=== PATIENT | male | born 1980 | race Caucasian/White ===

== ENCOUNTER 2017-07-21 23:48 | Observation (INO) | payer SELFPAY ==
[~2017-07-21] VITALS: Ht 182.9 cm; Wt 90.5 kg
[2017-07-21 23:59] VITALS: BP 141/82
[2017-07-22] VITALS (12 sets, daily range): BP systolic 95–141; BP diastolic 62–88
--- NOTE | 2017-07-22 00:10 | Emergency Room Report ---
History of Present Illness Time Seen by MD Miller Presenting Problem in Triage Pt arrived:Wheelchair Presenting Problem:LEFT KNEE RED,HOT AND SWOLLEN, DRAINING GREENISH DRAINAGE WITH FOUL ODOR PRESENT Onset of symptoms date/time:07/18/17/ or onset unknown for:MEDICAL HX UNKNOWN Treatment Prior to Arrival: DIAMOND CLEAVER Provided by: Sepsis Risk Assessment: Temp: 98.7 B/P: 141/82 MAP: 101 Pulse: 91 Resp: 12 Recent fever? N Clinical Suspician of Infection? N Mental Status: 1 - Regular (Normal Baseline) Sepsis Risk:Low Sepsis Risk Have you (or family members/close friends) recently traveled outside the [place]? N If Yes, where/when: Have you had exposure to infectious disease within the past month? N TB? Other? Specify: Source patient, RN notes reviewed, family, old records Exam Limitations no limitations Comment pt with progressive reddness and pain with drainage lt knee - n hx of diabetes and no hx of mrsa Cardiac Chest Pain Chest pain indicative of cardiac No Timing/Duration this evening Severity moderate ALLERGIES Coded Allergies: diphenhydramine (From BENADRYL) (Intermediate, 07/22/17) Home Medications Reported Medications No Known Home Medications History Medical History General CAD? No Angina: No [place]: No Hypertension? No Hyperlipidemia? No CHF? No DVT? No PE? No COPD? No Asthma? No Anemia? No GERD? No Gastric ulcers? No GI Bleed? No Hernia? No Thyroid Problems? No Hypothyroidism? No CVA? No Seizures? No Diabetes? No Renal Insuffiency? No End Stage Renal Disease? No UTI? No Stones? No BPH? No GB Disease: No Nephritic Syndrome? No Asplenia? No Hepatitis? No Sickle Cell Disease? No Arthritis? No Migraines? No Cataracts? No Glaucoma? No MRSA? No HIV? No TB? No Anxiety? No Depression? No Cancer? Yes Site: skin More? 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 Respiratory denies cough, denies shortness of breath, denies wheezing Cardiovascular denies chest pain, denies palpitations, denies syncope Gastrointestinal denies abdominal pain, denies nausea, denies vomiting Genitourinary denies: dysuria, frequency, hesitancy, hematuria. Musculoskeletal see HPI, denies back pain, joint pain, denies joint swelling, denies neck pain Skin see HPI, denies rash, other Psychiatric/Neurological denies headache, denies seizure Physical Exam Vital Signs Vital Signs Date Time Temp Pulse Resp B/P Pulse O2 O2 Flow FiO2 Ox Delivery Rate 07/22 0037 18 07/21 2359 98.7 91 12 141/82 99 - WBC >12,000 or <4,000 or 10% bands? 2 or more SIRS Criteria Met? B/P:141/82 MAP:101 Creatinine >2.0? UA output<0.5ml/kg/hr for 2 hrs? Platelet count >100,000? Lactate >2.0mmol/1? INR >1.2 or PTT > than 60 sec? Evidence of Organ Dysfunction? Provider documented clinical suspician of infection? N Sepsis Criteria Count: 1 Sepsis Risk: Low Sepsis Risk General Appearance no apparent distress Eye Exam - bilateral eye PERRL, bilateral eye EOMI Ear, Nose, Throat normal ENT inspection Neck supple Respiratory Status No: respiratory distress. Cardiovascular regular rate/rhythm Peripheral Pulses Pulses normal Yes Gastrointestinal soft Extremities swelling, reddness and drainage lt pretibial area with no def abscess and jt moves ok Strength 4 Upper Ext (L), 4 Upper Ext (R), 4 Lower Ext (L), 4 Lower Ext (R) Neurologic alert Reflexes Reflexes normal No Mental status normal mood/affect Skin cellulitis lt lower leg as noted above Medical Decision Making LABS/Meds/Orders Pt receiving controlled substance in ED? No Results/Orders Laboratory Tests 07/22/1714: Lactic Acid 1.2 07/22/1714: Hemoglobin A1c Pending 07/22/1714: Sodium 134 L, Potassium 3.9, Chloride 98, Carbon Dioxide 30, BUN 9, Creatinine 0.8, Estimated Creat Clear 161, Estimated GFR (MDRD) 108, Glucose 116 H, Calcium 8.7, Total Bilirubin 0.5, AST 13 L, ALT 16, Alkaline Phosphatase 71, Total Protein 8.4 H, Albumin 3.3 L, Globulin 5.1 H, Albumin/Globulin Ratio 0.6 L, WBC 11.9 H, RBC 4.75, Hgb 13.6 L, Hct 41.8 L, MCV 88.1, RDW 13.1, Plt Count 294, MPV 7.6, Gran % 74.7, Gran # 8.9 H, Lymphocytes % 13.6, Monocytes % 5.8, Eosinophils % 5.5, Basophils % 0.4, Lymphocytes # 1.6, Monocytes # 0.7, Eosinophils # 0.7 H, Basophils # 0.1, PUBS MCHC 32.4, MCH 28.6 Current Medication Orders Sig/Beena Start time Last Medication Dose Route Stop Time Status Admin Miscellaneous 1 EACH CONSULT PHARMACY 07/22 45 AC Information * 07/22 1234 Vancomycin HCl 1,000 MG ONCE ONE 07/22 45 CKDr 07/22 Sodium Chloride 250 ML IV 07/22 244 0038 Sodium Chloride 250 ML .STK-MED ONE 07/22 34 DC IV Vancomycin HCl 0 .STK-MED ONE 07/22 34 DC .ROUTE Ketorolac 0 .STK-MED ONE 07/223 DC Tromethamine .ROUTE Ketorolac 30 MG ONCE ONE 07/22 0015 DC 07/22 Tromethamine IV 07/22 0016 0037 Sodium Chloride 10 ML PRN PRN 07/22 15 AC IV 07/23 0007 Orders Procedure Date/time Status GLYCOHEMOGLOBIN (A1C) 07/22 44 Active KNEE-3 VIEWS-LT 07/22 001 Active IV SALINE LOCK 07/22 001 Active CULTURE, WOUND 07/22 10 Active CULTURE, BLOOD 07/22 001 Active LACTIC ACID 07/22 001 Complete SED RATE 07/22 001 Active CBC WITH AUTO DIFF 07/22 10 Complete CHEM 12 PROFILE 07/22 001 Complete XRAY/CT/US XRAY/CT/US XRAY knee XR interpretation by reviewed by me Xray Results no fracture seen Departure Departure Time of Disposition 004 Disposition Still a Patient Clinical Impression Primary Impression: Cellulitis of knee, left Condition STABLE Referrals Erick Briscoe MD discussed with dr briscoe Prescriptions Current Visit Scripts No Known Home Medications ED Critical Care Critical Care No at 0104
[2017-07-22 00:33] LABS: HEMOGLOBIN 13.6 g/dL (14.1-18.0); LYMPH # 1.6 K/mm3 (0.7-4.5); LYMPH % 13.6 % (10-50)
--- NOTE | 2017-07-22 07:12 | RADIOLOGY REPORT PS360 ---
KNEE-3 VIEWS-LT HISTORY: Pain and swelling, redness and edema AREA RED AND SWOLLEN ORDERING PHYSICIAN: Erick Montes MD PATIENT AGE: 37 years COMPARISON: None FINDINGS: No fracture or dislocation. No lytic or blastic change. Normal mineralization. No significant arthritic changes evident. No other significant findings IMPRESSION: Negative Knee
--- NOTE | 2017-07-22 13:25 | PHARMACY CLINIC NOTE ---
Patient Demographics Patient Demographics Admission date: 07/22/17 Date: 07/22/17 Time: 1325 Allergies Coded Allergies: diphenhydramine (From BENADRYL) (Intermediate, 07/22/17) HEIGHT- FT: 6 IN: 0.00 K.464 VTE General Information Labs: Laboratory Tests 07/22 0015 Hematology Hgb (14.1 - 18.0 g/dL) 13.6 L Hct (42.0 - 52.0 %) 41.8 L Plt Count (142 - 424 K/mm3) 294 Disclaimer The following section includes nursing documentation that has been pulled in for pharmacy review. Patient's VTE score: 0 Patient's VTE Risk: VERY LOW RISK Clinical trial participant? No VTE prophylaxis NQF 0371 VTE prophylaxis ordered? Yes Type of prophylaxis/treatment: SYLVIA at 1324
--- NOTE | 2017-07-22 13:30 | CONSULT NOTE ---
Pharmacokinetic Consult Date of consult: 07/22/17 Time of consult: 1328 Referring provider: DR. ALLEN Reason for consult: VANCOMYCIN DOSING Allergies: Coded Allergies: diphenhydramine (From BENADRYL) (Intermediate, 07/22/17) Home Medications: Reported Medications No Known Home Medications Height (feet): 6 Height (inches): 0.00 Medical History: CAD? No Angina: No [place]: No Hypertension? No Hyperlipidemia? No CHF? No DVT? No PE? No COPD? No Asthma? No Anemia? No GERD? No Gastric ulcers? No GI Bleed? No Hernia? No Thyroid Problems? No Hypothyroidism? No CVA? No Seizures? No Diabetes? No Renal Insuffiency? No UTI? No Stones? No BPH? No GB Disease: No Nephritic Syndrome? No Asplenia? No Hepatitis? No Sickle Cell Disease? No Arthritis? No Migraines? No Cataracts? No Glaucoma? No MRSA? No HIV? No TB? No Anxiety? No Depression? No Cancer? Yes Site: skin More? No Labs: Laboratory Tests 07/22/1714: Lactic Acid 1.2 07/22/1714: Hemoglobin A1c 5.4, ESR 68 H 07/22/17 001: Sodium 134 L, Potassium 3.9, Chloride 98, Carbon Dioxide 30, BUN 9, Creatinine 0.8, Estimated Creat Clear 161, Estimated GFR (MDRD) 108, Glucose 116 H, Calcium 8.7, Total Bilirubin 0.5, AST 13 L, ALT 16, Alkaline Phosphatase 71, Total Protein 8.4 H, Albumin 3.3 L, Globulin 5.1 H, Albumin/Globulin Ratio 0.6 L, WBC 11.9 H, RBC 4.75, Hgb 13.6 L, Hct 41.8 L, MCV 88.1, RDW 13.1, Plt Count 294, MPV 7.6, Gran % 74.7, Gran # 8.9 H, Lymphocytes % 13.6, Monocytes % 5.8, Eosinophils % 5.5, Basophils % 0.4, Lymphocytes # 1.6, Monocytes # 0.7, Eosinophils # 0.7 H, Basophils # 0.1, PUBS MCHC 32.4, MCH 28.6 Microbiology 07/22 15 BLOOD: Anaerobic Blood Culture - RECD 07/22 15 BLOOD: Aerobic Blood Culture - RECD 07/22 15 BLOOD: Anaerobic Blood Culture - RECD 07/22 15 BLOOD: Aerobic Blood Culture - RECD 07/22 10 WOUND: Wound Culture - RECD Problem List: 1. Cellulitis of knee, left Plan: RECOMMEND STARTING WITH VANCOMYCIN 1750 MG Q8H AT THIS TIME. PHARMACY WILL FOLLOW DAILY AND ADJUST APPROPRIATE. SUKHI MARQUEZ, PHARMD at [phone]
--- NOTE | 2017-07-22 13:40 | HISTORY AND PHYSICAL REPORT ---
See Addendum Demographics: Admit date: 07/21/17 Chief complaint: LEFT knee swelling and drainage PRIMARY DIAGNOSIS: CELLULITIS LT KNEE Allergies: Coded Allergies: diphenhydramine (From BENADRYL) (Intermediate, 07/22/17) History of present illness: History of present illness: 37-year-old white male who presented to the emergency department yesterday evening with LEFT knee swelling and drainage. ER note reviewed. ER physician called me and felt that given his high white count and failure of improvement he needed IV antibiotics and possible orthopedic consultation. I have now visited the second floor twice today and both times patient has been unavailable for examination because of his wish to go away from the floor out to the [facility] and smoke. The nurses report that he has active drainage from an area just below the knee. I have reviewed chart, vital signs, photos and x-rays. Past medical history: Family HX Diabetes Yes CAD Yes Hypertension Yes Hyperlipidemia No Cancer Yes TB No Immunization HX DT/Tetanus 1-4 Years Ago Flu Refused Pneumonia Never Had TB Test in last year Yes Result Negative General CAD? No Angina: No [place]: No Hypertension? No Hyperlipidemia? No CHF? No DVT? No PE? No COPD? No Asthma? No Anemia? No GERD? No Gastric ulcers? No GI Bleed? No Hernia? No Thyroid Problems? No Hypothyroidism? No CVA? No Seizures? No Diabetes? No Renal Insuffiency? No UTI? No Stones? No BPH? No GB Disease: No Nephritic Syndrome? No Asplenia? No Hepatitis? No Sickle Cell Disease? No Arthritis? No Migraines? No Cataracts? No Glaucoma? No MRSA? No HIV? No TB? No Anxiety? No Depression? No Cancer? Yes Site: skin More? 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 No Patien't marital status is single Patient's support system is fair Comment: Patient is apparently accompanied by his girlfriend Review of systems: Constitutional see HPI. Respiratory see HPI. Cardiovascular see HPI Gastrointestinal/Abdominal see HPI Genitourinary see HPI. Musculoskeletal see HPI. Neurological Yes: see HPI, no symptoms reported. Comment: Review of systems unreliable/unobtainable because of patient's absence from the floor Exam: Lab data for last 24 hours: Laboratory Tests 07/22/1714: Lactic Acid 1.2 07/22/1714: Hemoglobin A1c 5.4, ESR 68 H 07/22/1714: Sodium 134 L, Potassium 3.9, Chloride 98, Carbon Dioxide 30, BUN 9, Creatinine 0.8, Estimated Creat Clear 161, Estimated GFR (MDRD) 108, Glucose 116 H, Calcium 8.7, Total Bilirubin 0.5, AST 13 L, ALT 16, Alkaline Phosphatase 71, Total Protein 8.4 H, Albumin 3.3 L, Globulin 5.1 H, Albumin/Globulin Ratio 0.6 L, WBC 11.9 H, RBC 4.75, Hgb 13.6 L, Hct 41.8 L, MCV 88.1, RDW 13.1, Plt Count 294, MPV 7.6, Gran % 74.7, Gran # 8.9 H, Lymphocytes % 13.6, Monocytes % 5.8, Eosinophils % 5.5, Basophils % 0.4, Lymphocytes # 1.6, Monocytes # 0.7, Eosinophils # 0.7 H, Basophils # 0.1, PUBS MCHC 32.4, MCH 28.6 Microbiology 07/22 15 BLOOD: Anaerobic Blood Culture - RECD 07/22 15 BLOOD: Aerobic Blood Culture - RECD 07/22 15 BLOOD: Anaerobic Blood Culture - RECD 07/22 15 BLOOD: Aerobic Blood Culture - RECD 07/22 10 WOUND: Wound Culture - RECD Additional information: I am unable to examine patient in the allotted time. Per medical staff bylaws because of patient's persistent absence from his hospital room. Plan: Problem List 1. Cellulitis of knee, left Plan: Hopefully I will be able to see the patient at some point in the next 24 hours. I do think orthopedic consultation is indicated given the proximity of cellulitis to the knee joint. We will continue antibiotics as ordered through the emergency department. at 1340
--- NOTE | 2017-07-22 16:36 | CONSULT NOTE ---
Consultation findings: Referring physician: Dr. Montes Date of examination: 07/22/17 Time of examination: 1530 Exam findings: History of present illness: Patient is a 37-year-old white male who was admitted to the hospital from the emergency department yesterday evening with LEFT knee cellulitis, swelling and drainage. Patient says he developed a small pustule over the infrapatellar area of his left knee 4 days ago. He states he tried to drain this with a pin after which it became enlarged with erythema and tenderness over the infrapatellar area extending onto the front of the leg. It started draining purulent material yesterday. He also reports having had fever couple of times at home. When he presented to the ER he had slightly elevated white cell count. He was started on IV vancomycin and admitted for observation. He reports no fever since admission. He reports pain over the infrapatellar area extending onto the front of the leg. No pain in the knee joint itself. He is able to mobilize fully weightbearing without support. He says he had similar but minor problems over both knee joints in the past. 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 He is a chronic smoker and smokes a pack of cigarettes a day. He is past medical history, medication, ROS and physical examination are well documented by Dr. Montes. It is reviewed but not duplicated here. His examination is confined to the LEFT knee. I reviewed the labs, medication, ER and medical admission notes, x-rays and discussed with nursing staff. Physical examination: On examination of his left knee, he has erythema over the infrapatellar area extending onto the upper anterior leg. There is an area of 3 cm x 3 cm macerated skin in front of the tibial tubercle with drainage of small amount of purulent material. He is tender over this area. The examination of the knee joint itself is unremarkable. There is no joint line tenderness and he has knee range of motion from 0-100 of flexion. There is no knee joint effusion. He is able to actively straight leg raise. There is no regional lymphadenopathy. His thigh and calf are soft and nontender. Distal neurovascular status is intact. Imaging: X-ray of his left knee performed yesterday reviewed along with radiologist report- FINDINGS: No fracture or dislocation. No lytic or blastic change. Normal mineralization. No significant arthritic changes evident. No other significant findings. IMPRESSION: Negative Knee 07/22/17 0712 BONAL / PS AT 0707 T: AT 0708. Impression: Cellulitis, left knee Recommendations: I reviewed the clinical and x-ray findings with the patient. I have discussed the diagnosis, natural history and management options in detail including both nonsurgical and surgical. He has a very superficial infected lesion over the infrapatellar area with macerated overlying skin. There is a large area of surrounding cellulitis. The knee joint itself is not involved in the infective process. Given these findings, I would expect this to improve with conservative management with IV antibiotics, as needed pain medication, NSAIDs, elevation and cessation of smoking. Following a discussion with the patient and after obtaining a verbal consent, I have performed a bedside debridement excising the macerated skin over the infrapatellar area. This exposed a small area of superficial unhealthy granulation tissue without any deeper extension. Sterile nonadherent dressings are applied over this area. Thank you for the opportunity to participate in the care of this patient.
--- OUTSIDE RECORDS SUMMARY | 2017-07-23 02:24 | External Medical Summary Rpt | CCD ---
Demographics Preferred Language Urdu Marital Status Unknown Buddhist Affiliation Unknown Race Unknown Ethnic Group Unknown Author Author , GRACE Organization GRACE Address Unknown Phone [email or web address] Immunization Name Date Rout CVX Reac Dose Comm Prov Is Faci e tion ent ider Refu lity Give sed n Td 08-0 9 999 Hist H196 No H196 (estella 5-19 oric lt), 96 al Info adso rmat rbed ion - Sour ce Unsp ecif ied
--- OUTSIDE RECORDS SUMMARY | 2017-07-23 02:24 | External Medical Summary Rpt | CCD ---
Author Author , GRACE EDWARDS Address Unknown Phone Care Team Providers Care Fireman Name Role Phone [facility], Unavailable Unavailable [facility], Unavailable Unavailable [facility] MARIANNE GARCIA, MARIANNE GARCIA Unavailable Unavailable [facility], Unavailable Unavailable [facility] Purpose Continuity of Care Document - 09-17-2014 through 2016 Problems Code Diagnosis DOS Provider Status Z681 BODY MASS 05-09-2016 DEPT FOR INDEX 19.9 [facility] OR LESS ADULT 5259 UNSPECIFIED 09-17-2014 [facility] RTING STRUCTURES 75237 TOOTH 09-17-2014 [facility] TRAUMA W/O MENTION COMP Encounters Encounter Start End Date Code Location Performer Type Date EMERGENCY [address] [facility]SE 4 4 [facility] T VISIT MODERATE SEVERITY
--- OUTSIDE RECORDS SUMMARY | 2017-07-23 02:24 | External Medical Summary Rpt | CCD ---
Author Author , GRACE EDWARDS Address Unknown Phone Care Team Providers Care Grocery Packer Name Role Phone [facility], [...] DISORDER [facility] RTING STRUCTURES 53686 TOOTH 09-17-2014 [facility] TRAUMA W/O MENTION COMP Encounters Encounter Start End Date Code Location Performer Type Date EMERGENCY [address] [facility] JO[facility] 4 4 [facility] T VISIT MODERATE SEVERITY
--- OUTSIDE RECORDS SUMMARY | 2017-07-23 02:24 | External Medical Summary Rpt | CCD ---
Author Author , GRACE EDWARDS Address Unknown Phone [email or web address] Care Team Providers Care Retail Center Receptionist Name Role Phone [facility], [...] DISORDER [facility] RTING STRUCTURES 56279 TOOTH 09-17-2014 [facility] TRAUMA W/O MENTION COMP Encounters Encounter Start End Date Code Location Performer Type Date EMERGENCY [address] [facility] JOSE 4 4 [facility] T VISIT MODERATE SEVERITY
--- OUTSIDE RECORDS SUMMARY | 2017-07-23 02:24 | External Medical Summary Rpt ---
Author Author GRACE Dai, GRACE Production Organization [employer] Address Unknown Phone Unavailable
--- OUTSIDE RECORDS SUMMARY | 2017-07-23 02:24 | External Medical Summary Rpt | CCD ---
Demographics Preferred Language Korean Marital Status Unknown Episcopalian Affiliation Unknown Race Unknown Ethnic Group Unknown Author Author , GRACE Organization [facility] Address Unknown Phone [email or web address] Immunization Name Date Rout CVX Reac Dose Comm Prov Is Faci e tion ent ider Refu lity Give sed n Td 08-0 9 999 Hist H196 No H196 (estella 5-19 oric lt), 96 al Info adso rmat rbed ion - Sour ce Unsp ecif ied
--- OUTSIDE RECORDS SUMMARY | 2017-07-23 02:24 | External Medical Summary Rpt ---
Author Author GRACE Dai, [employer] Organization [employer] Address Unknown Phone Unavailable
--- OUTSIDE RECORDS SUMMARY | 2017-07-23 02:24 | External Medical Summary Rpt | CCD ---
Author Author , GRACE EDWARDS Address Unknown Phone [email or web address] [facility] Care Team Providers Care Systems Requirements Planner Name Role Phone [facility], [...] DISORDER [facility] RTING STRUCTURES 09007 TOOTH 09-17-2014 [facility] TRAUMA W/O MENTION COMP Encounters Encounter Start End Date Code Location Performer Type Date EMERGENCY [address] [facility]NE [facility]SO[facility] 4 4 [facility] MED [facility] T VISIT MODERATE SEVERITY
[2017-07-23 04:30] VITALS: BP 115/58
[2017-07-23 07:18] LABS: LYMPH # 1.5 K/mm3 (0.7-4.5); LYMPH % 22.2 % (10-50)
[2017-07-23 07:20] LABS: HEMOGLOBIN 12.1 g/dL (14.1-18.0)
--- NOTE | 2017-07-23 08:03 | DISCHARGE SUMMARY STANDARD ---
Demographics Admit date: 07/21/17 Discharge date: 07/23/17 History of present illness History of present illness 37-year-old white male who presented to the emergency department yesterday evening with LEFT knee swelling and drainage. ER note reviewed. ER physician called me and felt that given his high white count and failure of improvement he needed IV antibiotics and possible orthopedic consultation. I have now visited the second floor twice today and both times patient has been unavailable for examination because of his wish to go away from the floor out to the [facility] and smoke. The nurses report that he has active drainage from an area just below the knee. I have reviewed chart, vital signs, photos and x-rays. Hospital Course Hospital Course: Patient was admitted. I finally was able to examine the patient which revealed the area of skin sloughing, cellulitis and significant drainage underneath the LEFT patella. IV antibiotic for continued. Orthopedics was consulted, note reviewed and appreciated. Bedside debridement was accomplished but no evidence of abscess or knee joint involvement was noted. They recommended continuing current therapy. This morning the patient is doing well. He has LEFT the hospital floor several times to smoke although complains of pain when he walks. He is afebrile. Cardiopulmonary exam unchanged. His LEFT knee looks much improved with much less redness. The debrided area looks healthy with some granulation tissue. Plan will be to discharge the patient today with by mouth antibiotics, three-day supply of Tylenol 3 for acute pain. Strongly encouraged not to smoke. He will see his regular physician in [facility] sometime this week. Discharge diagnoses Problem List 1. Cellulitis of knee, left Medications Medications: Discharge meds are as noted. Follow up Follow up in office in: 5 DAYS with: MCKENNA CEVALLOS at 0803
--- NOTE | 2017-07-23 08:03 | DISCHARGE SUMMARY STANDARD ---
Demographics Admit date: 07/21/17 Discharge date: 07/23/17 History of present illness History of present illness 37-year-old white male who presented to the emergency department yesterday evening with LEFT knee swelling and drainage. ER note reviewed. ER physician called me and felt that given his high white count and failure of improvement he needed IV antibiotics and possible orthopedic consultation. I have now visited the second floor twice today and both times patient has been unavailable for examination because of his wish to go away from the floor out to the [facility] and smoke. The nurses report that he has active drainage from an area just below the knee. I have reviewed chart, vital signs, photos and x-rays. Hospital Course Hospital Course: Patient was admitted. I finally was able to examine the patient which revealed the area of skin sloughing, cellulitis and significant drainage underneath the LEFT patella. IV antibiotic for continued. Orthopedics was consulted, note reviewed and appreciated. Bedside debridement was accomplished but no evidence of abscess or knee joint involvement was noted. They recommended continuing current therapy. This morning the patient is doing well. He has LEFT the hospital floor several times to smoke although complains of pain when he walks. He is afebrile. Cardiopulmonary exam unchanged. His LEFT knee looks much improved with much less redness. The debrided area looks healthy with some granulation tissue. Plan will be to discharge the patient today with by mouth antibiotics, three-day supply of Tylenol 3 for acute pain. Strongly encouraged not to smoke. He will see his regular physician in [facility] sometime this week. Discharge diagnoses Problem List 1. Cellulitis of knee, left Medications Medications: Discharge meds are as noted. Follow up Follow up in office in: 5 DAYS with: MCKENNA CEVALLOS at [phone]
[2017-07-23] MEDS ORDERED: BACTRIM DS 8001 TA1 PO (08:04)
[2017-07-23] MEDS ORDERED: CLINDAMYCIN HC300 MG PO (08:04)
[2017-07-23] MEDS ORDERED: TYLENOL WITH CO1 TA1 PO (08:05)
[2017-07-23 08:30] VITALS: BP 110/62
[2017-07-23 09:29] VITALS: BP 110/62
== END 2017-07-23 09:23 | disposition home or self-care (01) ==
LOC: ER 23:48 → 2ND 07-22 01:00
PROVIDERS: Emergency Medicine
DX: L03.116 Cellulitis of left lower limb (principal); Z85.828 Personal history of other malignant neoplasm of skin; F17.210 Nicotine dependence, cigarettes, uncomplicated
CPT/HCPCS: G0378; J3370